=== PATIENT | female | born 1985 | race Caucasian/White ===

== ENCOUNTER 2016-12-20 12:22 | Emergency (ER) | payer OTHER ==
[2016-12-20 12:32] VITALS: TEMP 98.1
--- NOTE | 2016-12-20 13:23 | EDPHY ---
H & P Smoking Status: Never smoked Time Seen by Provider: 12/20/16 13:00 HPI/ROS: HPI: Rosalie Chávez is a 31 yrs, female who presents with Chief Complaint: numbness of lateral knee Location: bilateral lower legs Quality: numbness Duration: 1 week Signs and Symptoms: no fever, no chills, + midline lower back aching, no incontinence, no weakness, no dysuria, no vaginal discharge, + urinary frequency Timing: sudden, constant Severity: mild to moderate Context: complaints of left lower leg > right light lower leg concentrated at knee along with bilateral feet numbness x 1 week. denies raditation of pain from lower back. does complain of midline lumbar achiness. Patient brought workup from PCP, Aranza Mehta including UA 12/20/16 normal, cbc/cmp unremarkable except Creatinine 1.4, ESR 5, TSH 1.65. autoimmune panel ordered but results pending. denies injury or recent increased activity. does drink protein shakes once daily. sent by PCP for renal ultrasound. Modifying Factors: increased fluid intake last few days REVIEW OF SYSTEMS: Constitutional: No fever Eyes: No blurred vision Respiratory: No shortness of breath, no cough Cardiovascular: No chest pain Gastrointestinal: No nausea, no vomiting no diarrhea Genitourinary: No dysuria Extremities: No myalgias Neurologic: No weakness, no tingling Skin: No rashes Hematologic: No bruising, no bleeding (Gladys Bill) Past Medical/Surgical History: Latoya, anxiety, has IUD (Gladys Bill) Physical Exam: General Appearance: middle aged physically fit white well appearing female, cooperative, Alert, no distress. Eyes: Pupils equal and round no pallor or injection. ENT, Mouth: Mucous membranes moist. Respiratory: There are no retractions, lungs are clear to auscultation. Cardiovascular: Regular rate and rhythm. Gastrointestinal: Abdomen is soft and nontender, no masses, bowel sounds normal. Neurological: GCS 15. 1/2 decreased sensation lateral aspect of left knee. left knee full extension, flexion 120 degrees, stable ligamentous exam, no effusion. no decreased sensation right lateral knee full extension, flexion 120 degrees, stable ligamentous exam, no effusion. Skin: Warm and dry, no rashes. BACK: mild lumbar midline tenderness to palpation, flexion/extension/rotation FROM and no pain with movement, no pain with SLR, no deformities, no paraspinous spasm. DTR 2/2 Extremities: 2/2 pulses, symmetrical, full range of motion. Psychiatric: Patient is oriented X 3, there is no agitation. (Gladys Bill) Constitutional: Initial Vital Signs Temperature (C) 36.7 C 12/20/16 12:29 Heart Rate 62 12/20/16 12:29 Respiratory Rate 17 12/20/16 12:29 Blood Pressure 108/82 H 12/20/16 12:29 O2 Sat (%) 100 12/20/16 12:29 O2 Delivery Mode Room Air Allergies/Adverse Reactions: doxycycline [Doxycycline] Allergy (Mild, Verified 12/20/16 12:25) Home Medications: Medication Instructions Recorded Adderall 10 MG (*) 05/06/16 Wellbutrin Sr 05/06/16 Diflucan 12/20/16 Gluthione 12/20/16 Levomefolate Calcium 12/20/16 Levornorgestrel 12/20/16 TRETINOIN 12/20/16 buPROPion 12/20/16 busPIRone 12/20/16 Medical Decision Making - Diagnostics Imaging Results: Imaging Impressions Lumbar Spine X-Ray 12/20/16 13:11 Impression: 1. Normal lumbar spine without instability. 2. Constipation. 3. Right nephrolithiasis. Abdomen/Pelvis Ultrasound 12/20/16 13:16 Impression: 1. Consistent with medical renal disease. No obstruction. 2. Nonobstructive right lower pole nephrolithiasis. ED Course/Re-evaluation: Renal US, UA and LS xray ordered has IUD and currently menstruating; no test ordered will not repeat labs UA 1+ bacteria, no protein, no infection, no glucose LS xray my read no DDD, + constipation Renal US: + nephrolithiasis and medical renal disease; nephrology follow up outpatient printed renal us for patient to give to PCP no signs of neurovascular compromise/cauda equina syndrome/proteinuria/ vasculitis/hydronephrosis/pyelonephritis (Gladys Bill) The this patient was seen and examined by me. Abdomen is soft and nontender. I agree with the assessment and plan. (Wen Brewster) Differential Diagnosis: Back pain including but not limited to muscular pain, herniated disc, spine fracture, intra-abdominal causes and urinary tract infection. (Gladys Bill) - Data Points Laboratory Results: 12/20/16 12:30 Urine Color PALE YELLOW Urine Appearance CLEAR Urine pH 7.0 (5.0-7.5) Ur Specific [place] 1.003 (1.002-1.030) Urine Protein NEGATIVE (NEGATIVE) Urine Ketones NEGATIVE (NEGATIVE) Urine Blood 1+ H (NEGATIVE) Urine Nitrate NEGATIVE (NEGATIVE) Urine Bilirubin NEGATIVE (NEGATIVE) Urine Urobilinogen NEGATIVE EU EU (0.2-1.0) Ur Leukocyte Esterase NEGATIVE (NEGATIVE) Urine RBC 1-3 /hpf /hpf (0-3) Urine WBC 1-3 /hpf /hpf (0-3) Ur Epithelial Cells TRACE /lpf /lpf (NONE-1+) Urine Glucose NEGATIVE (NEGATIVE) Departure - Departure Disposition: Home, Routine, Self-Care Clinical Impression: Acute renal insufficiency, Nephrolithiasis Constipation Qualifiers: Constipation type: unspecified constipation type Qualified Code(s): K59.00 - Constipation, unspecified Condition: Good Instructions: Constipation (ED), Kidney Stones (ED), Paresthesia (ED) Additional Instructions: Follow up with Nephrology in 1-2 weeks for Ultrasound showing medical renal disease. Referrals: KHADRA ROWLAND [Other] - As per Instructions Josué Leonardo MD [Medical Doctor] - As per Instructions
[2016-12-20 13:46] LABS: COLOR PALE YELLOW; LEUKOCYTE ESTERASE,URINE NEGATIVE (NEGATIVE); NITRITE,URINE NEGATIVE (NEGATIVE)
[2016-12-20 15:35] VITALS: BP 110/58; PULSE 60; RESP 16; O2SAT 96
== END 2016-12-20 15:36 | disposition home or self-care (01) ==
DX: N28.9 Disorder of kidney and ureter, unspecified (principal); N20.0 Calculus of kidney; K59.00 Constipation, unspecified

== ENCOUNTER → 2018-07-02 | Outpatient (CLI) | payer OTHER | END | disposition home or self-care (01) | LOC: FIMAGING 15:07 | DX: E04.1 Nontoxic single thyroid nodule (principal) ==

== ENCOUNTER 2018-12-06 10:53 | Emergency (ER) | payer OTHER | END 2018-12-06 15:58 | disposition home or self-care (01) ==

== ENCOUNTER 2018-12-18 23:08 | Emergency (ER) | payer OTHER | END 2018-12-19 01:56 | disposition home or self-care (01) ==